=== PATIENT | male | born 1965 | race Caucasian/White ===

== ENCOUNTER 2016-11-30 06:59 | Emergency (ER) | payer BC ==
[~2016-11-30] VITALS: Ht 162.6 cm; Wt 106.8 kg
[~2016-11-30 06:59] MED LIST: LORTAB 5/500 501 TAB PO; NO HOME MEDICATIONS; NORCO 325 MG-51 TAB PO
[2016-11-30 07:01] VITALS: TEMP 97.5
[2016-11-30 07:50] LABS: BASO % 0.4 % (0.0-2.0); EOS # 0.7 (0.0-0.7); EOS % 7.8 % (0-4.0); GRAN # 7.5 (1.4-6.5); GRAN % 78.6 % (42.2-75.2); HEMATOCRIT 46.7 % (42.0-52.0); HEMOGLOBIN 15.9 g/dl (13.5-18.0); LYMPH # 0.7 (1.2-3.4); LYMPH % 7.3 % (20.0-51.0); MEAN CELL VOLUME 84 fl (80.0-100.0); MEAN CORPUSCULAR HEMOGLOBIN 29 pg (27.0-31.0); MEAN CORPUSCULAR HGB CONC 34 g/dl (33.0-37.0); MEAN PLATELET VOLUME 10.2 fl (7.4-10.4); MONO # 0.5 (0.1-0.6); MONO % 5.6 % (1.7-9.3); PLATELET COUNT 192 K/mm3 (130-400); RED BLOOD COUNT 5.53 M/mm3 (4.20-5.60); REDCELL DISTRIBUTION WIDTH-CV 13.2 % (11.5-14.5); WHITE BLOOD COUNT 9.5 K/mm3 (4.8-10.8)
[2016-11-30 07:51] LABS: PROTHROMBIN TIME 11.4 SECONDS (9.7-12.8)
[2016-11-30 07:54] LABS: PARTIAL THROMBOPLASTIN TIME 33.3 SECONDS (26.0-37.0)
[2016-11-30 08:02] LABS: ALANINE AMINOTRANSFERASE 36 U/L (21-72); ALBUMIN 4.2 gm/dL (3.5-5.0); ALKALINE PHOSPHATASE 100 U/L (50-136); ANION GAP 13 mmol/L (7-16); BLOOD UREA NITROGEN 15 mg/dL (9-20); CALCIUM 9.2 mg/dL (8.4-10.2); CARBON DIOXIDE 24 mmol/L (22-30); CHLORIDE 103 mmol/L (98-107); CREATININE, serum 1.03 mg/dL (0.66-1.25); GLUCOSE 122 mg/dL (74-106); POTASSIUM 4.1 mmol/L (3.4-5.0); SODIUM 140 mmol/L (137-145); TOTAL PROTEIN 7.6 gm/dL (6.4-8.2)
[2016-11-30 08:14] LABS: TROPONIN-I < 0.012 ng/mL (0.000-0.034)
[2016-11-30 10:54] VITALS: BP 126/88; PULSE 89
== END 2016-11-30 10:55 | disposition home or self-care (01) ==
LOC: COL.ER 06:59
PROVIDERS: Emergency Medicine
DX: R07.9 Chest pain, unspecified (principal); I10 Essential (primary) hypertension

== ENCOUNTER 2019-08-07 00:48 | Observation (INO) | payer BC ==
[2019-08-07] VITALS (8 sets, daily range): BP systolic 131–165; BP diastolic 87–107; PULSE 92–126; TEMP 97.6–98.1
[~2019-08-07] VITALS: Ht 165.1 cm; Wt 116.8 kg
[2019-08-07] MEDS ORDERED: ALDACTAZIDE 501 TAB PO (00:59)
[2019-08-07 01:33] LABS: HEMATOCRIT 49.9 % (42.0-52.0); HEMOGLOBIN 16.4 g/dl (13.5-18.0); MEAN CELL VOLUME 86 fl (80.0-100.0); MEAN CORPUSCULAR HEMOGLOBIN 28 pg (27.0-31.0); MEAN CORPUSCULAR HGB CONC 33 g/dl (33.0-37.0); MEAN PLATELET VOLUME 9.7 fl (7.4-10.4); PLATELET COUNT 270 K/mm3 (130-400); RED BLOOD COUNT 5.83 M/mm3 (4.20-5.60); REDCELL DISTRIBUTION WIDTH-CV 14.3 % (11.5-14.5)
[2019-08-07 01:42] LABS: ALANINE AMINOTRANSFERASE 44 U/L (21-72); ALBUMIN 4.3 gm/dL (3.5-5.0); ALKALINE PHOSPHATASE 97 U/L (50-136); ANION GAP 7 mmol/L (7-16); AST,SGOT 23 U/L (15-37); BILIRUBIN,TOTAL 0.4 mg/dL (0.0-1.0); BLOOD UREA NITROGEN 22 mg/dL (9-20); C-REACTIVE PROTEIN 0.9 mg/dL (0.0-0.9); CALCIUM 9.4 mg/dL (8.4-10.2); CARBON DIOXIDE 29 mmol/L (22-30); CHLORIDE 103 mmol/L (98-107); CREATININE, serum 1.09 (0.66-1.25); GLUCOSE 114 mg/dL (74-106); LIPASE 68 U/L (23-300); POTASSIUM 3.9 mmol/L (3.4-5.0); SODIUM 140 mmol/L (137-145); TOTAL PROTEIN 7.5 gm/dL (6.4-8.2)
[2019-08-07 01:51] LABS: TROPONIN-I < 0.012 ng/mL (0.000-0.035)
[2019-08-07 01:57] LABS: BAND 3 % (0-10); EOSINOPHIL 2 % (0-4); METAMYELOCYTE 2 % (0-0); NEUTROPHILS 65 % (42.0-75.2)
[2019-08-07 02:00] LABS: LYMPHOCYTE 26 % (20.0-51.0); PLATELET ESTIMATE NORMAL (NORMAL)
[2019-08-07 06:06] LABS: PROTHROMBIN TIME 11.5 SECONDS (9.7-12.8)
[2019-08-07 06:09] LABS: PARTIAL THROMBOPLASTIN TIME 29.1 SECONDS (26.0-37.0)
[2019-08-07 06:11] LABS: CHOLESTEROL RISK RATIO 3.6; MAGNESIUM 1.8 mg/dL (1.6-2.3)
--- NOTE | 2019-08-07 06:15 | NUR ---
Pt arrived to room 317, transferred per stretcher by ED staff. Pt awake, a&o, denies pain or other c/o at this time. INT patent. Pt oriented to room, unit policies et current POC. Questions invited et answered, pt verbalizes understanding. Pt denies further needs. Call light in reach, will continue c admit process.
[2019-08-07] MEDS ORDERED: HCTZ 25MG TAB25 MG PO (06:23)
[2019-08-07] MEDS ORDERED: COZAAR100 MG PO (06:23)
[2019-08-07] MEDS ORDERED: PROAIR HFA0.09 MG/AC IH (06:24)
--- NOTE | 2019-08-07 08:00 | NUR ---
Patient resting in bed. A&O x4. VSS, blood pressure elevated at 160/107 Currently NPO waiting for procedure. IV CDI. Patient denies chest pain and SOB. Expresses no further needs. Call light in reach.
--- NOTE | 2019-08-07 09:45 | NUR ---
Patient taken by wheelchair for procedure. No further needs expressed from patient.
--- NOTE | 2019-08-07 10:17 | NUR ---
CARI met with the patient to discuss discharge plan. The patient lives alone in [place]. He reports independence with ADLs and does not have any DME. The patient's PCP is Dr. Amado Kim and he receives his medications at [facility]. He reports no difficulties obtaining his meds. The patient does not have advanced directives, but he was interested in obtaining a form for DPOA-HC. CARI provided. The patient states that his next of kin would be his mother, Dayana Dhillon (ph#[phone]). The patient plans to return home upon discharge. No additional needs at this time.
--- NOTE | 2019-08-07 12:16 | NUR ---
Patient back to room 317 from procedure. A&O. Denies pain and discomfort. No further needs expressed from patient. Call light within reach
--- NOTE | 2019-08-07 17:01 | NUR ---
Patient discharged. Discharge paperwork reviewed with pt. Pt verbalized understanding to follow drs orders. IV removed, tip intact, dakotah and coban applied. Patient tolerated well. No further needs expressed by pt. Discharge paperwork and personal belongings with pt. Pt ambulated independently with nursing staff to vehicle.
== END 2019-08-07 17:03 | disposition home or self-care (01) ==
LOC: COL.ER 00:48 → MEDICAL 04:39
PROVIDERS: Emergency Medicine; Nurse Practitioner Family; ADMIT Hospitalist
DX: R07.9 Chest pain, unspecified (principal); I10 Essential (primary) hypertension; I08.1 Rheumatic disorders of both mitral and tricuspid valves; E66.01 Morbid (severe) obesity due to excess calories; D72.829 Elevated white blood cell count, unspecified
CPT/HCPCS: A9500; G0378; J1650; J2785; J7030; Q9967

== ENCOUNTER → 2019-08-14 | Outpatient (CLI) | payer BC ==
[~2019-08-14] MED LIST changes: +ALDACTAZIDE 501 TAB PO; +COZAAR100 MG PO; +HCTZ 25MG TAB25 MG PO; +PROAIR HFA0.09 MG/AC IH
== END ==
LOC: COL.RAD 08:55
DX: K21.9 Gastro-esophageal reflux disease without esophagitis (principal)

== ENCOUNTER → 2022-11-10 | Day surgery (SDC) | payer BC ==
[~2022-11-10] VITALS: Ht 162.6 cm; Wt 105.0 kg
[~2022-11-10] MED LIST changes: +GLUCOPHAGE XR500 M1 PO; +HYZAAR 25 MG-101 TAB PO; +JARDIANCE10 PO; +LIPITOR 40MG TA40 MG PO; +MOTRIN 600600 MG/TAB PO; +OZEMPIC0.25 MG/0. SQ; +RT ADVAIR 228 DISKUS IH
[2022-11-10 13:13] VITALS: BP 141/87; PULSE 108; TEMP 98
[2022-11-10 15:52] VITALS: BP 132/78; PULSE 100; TEMP 97.8
[2022-11-10 16:07] VITALS: BP 116/69; PULSE 100
[2022-11-10 16:22] VITALS: BP 127/71; PULSE 104
[2022-11-10 16:37] VITALS: BP 128/78; PULSE 100
--- NOTE | 2022-11-10 16:45 | NUR ---
1552 RETURNS TO ROOM 7 PER CART. AWAKE, ALERT. RESP UNLABORED. HOB ELEVATED 30 DEGREES. DENIES PAIN OR NAUSEA. ABD SOFT. INCISION X 3 LAP SITES WITHOUT REDNESS OR DRAINAGE. VITAL SIGNS OBTAINED. CALL LIGHT AT SIDE. MOTHER IN ROOM. 1605 REPOSTIONS ON CART. TOLERATES PO WATER WITHOUT NAUSEA. REFUSES SNACK 1625 DISCHARGE INSTRUCTIONS REVIEWED. PATIENT VERBALIZES UNDERSTANDING. COPY PROVIDED IN DISCHARGE FOLDER 0065 AMBULATES TO BATHROOM WITH STANDBY ASSIST. REPORTS VOIDED WITHOUT DIFFICULTY. THEN SITS IN CHAIR, DRESSES SELF
[2022-11-10 18:08] VITALS: BP 132/78; PULSE 105; TEMP 98.5
== END ==
LOC: SDCO 10:26
DX: K40.20 Bilateral inguinal hernia, without obstruction or gangrene, not specified as recurrent (principal); G47.33 Obstructive sleep apnea (adult) (pediatric); E11.9 Type 2 diabetes mellitus without complications; Z79.84 Long term (current) use of oral hypoglycemic drugs
CPT/HCPCS: C1781; J0690; J1100; J1885; J2405; J2704; J3010; J7030